=== PATIENT | female | born 2000 | race Caucasian/White ===

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

== ENCOUNTER → 2020-04-02 | Outpatient (CLI) | payer OTHER ==
[~2020-04-02] MED LIST changes: +BACL10 PO; +DOCU LIQUI50 MG/5 ML PT; +JEVITY 1.2 CAL237 M1; +Keppra100 MG/1 M PT; +METO10 PT
== END | disposition home or self-care (01) ==
LOC: LAB SHORT 10:40 → LAB EV 10:40
DX: L02.91 Cutaneous abscess, unspecified (principal)
CPT/HCPCS: 87070; 87075; 87077; 87186; 87205

== ENCOUNTER → 2020-04-04 | Outpatient (CLI) | payer OTHER ==
[2020-04-04 10:09] LABS: Source, Urine Clean Catch
[2020-04-04 13:01] LABS: Appearance, Urine Hazy (Clear); Bilirubin, Urine Neg (Neg); Blood, Urine Neg (Neg); Color, Urine Yellow (P-Yellow); Glucose Qualitative, Urine Neg (Normal); Ketones, Urine 1+ (Neg); Leukocyte Esterase, Urine Trace (Neg); Nitrite, Urine Neg (Neg); Protein, Urine Neg (Neg); Specific Gravity, Urine 1.015 (1.003-1.022); Urobilinogen, Urine NORM (Normal)
[2020-04-04 13:02] LABS: Amorphous Mod (0-Heavy); Bacteria Not Seen /hpf; Red Blood Cells, Urine Not Seen /hpf (0-2); Squamous Epithelial Cells Rare /hpf (Few)
== END | disposition home or self-care (01) ==
LOC: LAB EV 08:45 → LAB SHORT 08:45
PROVIDERS: Family Medicine
DX: R11.10 Vomiting, unspecified (principal)
CPT/HCPCS: 81001; 87086

== ENCOUNTER → 2020-06-25 | Outpatient (CLI) | payer OTHER ==
[~2020-06-25] MED LIST changes: +Fleet Enema132 ML PR; +HYDCOR10 PO; +LACO50TA2; +ONDA4 PO; +THERA-D2000 UNIT PO
[2020-06-25 08:56] LABS: Source, Urine Clean Catch
[2020-06-25 09:39] LABS: Appearance, Urine Clear (Clear); Bilirubin, Urine Neg (Neg); Blood, Urine Neg (Neg); Color, Urine Yellow (P-Yellow); Glucose Qualitative, Urine Neg (Normal); Ketones, Urine Neg (Neg); Leukocyte Esterase, Urine Neg (Neg); Nitrite, Urine Neg (Neg); Protein, Urine Neg (Neg); Urobilinogen, Urine NORM (Normal)
== END | disposition home or self-care (01) ==
LOC: LAB EV 08:53 → LAB SHORT 08:53 → PLD 08:53
PROVIDERS: Student in an Organized Health Care Education/Training Program
DX: G40.909 Epilepsy, unspecified, not intractable, without status epilepticus (principal)
CPT/HCPCS: 81003

== ENCOUNTER 2020-07-22 12:10 | Day surgery (SDC) | payer OTHER ==
[~2020-07-22 12:10] MED LIST changes: -Fleet Enema132 ML PR; -HYDCOR10 PO; -LACO50TA2; -ONDA4 PO; -THERA-D2000 UNIT PO
[2020-07-22] MEDS ORDERED: Fleet Enema132 ML PR (12:19)
[2020-07-22] MEDS ORDERED: HYDCOR10 PO (12:19)
[2020-07-22] MEDS ORDERED: ONDA4 PO (12:24)
[2020-07-22] MEDS ORDERED: LACO50TA2 (12:26)
[2020-07-22] MEDS ORDERED: THERA-D2000 UNIT PO (12:26)
--- NOTE | 2020-07-22 14:10 | NUR ---
07/22/20 1410 Juvencio Quiroz LATE ENTRY: PRE-OP, RN ASKED BOTH DR. ROSARIO AND DR. MORRIS IF BLOOD DRAWN FOR CHECK IS NEEDED. BOTH DOCTORS STATED "NO". PT UNABLE TO GIVE URINE FOR TEST. PT NON-VERBAL.
== END 2020-07-22 13:45 | disposition home or self-care (01) ==
LOC: ORSCSDS 12:10
PROVIDERS: Student in an Organized Health Care Education/Training Program
PROC: 0DB68ZX Excision of Stomach, Via Natural or Artificial Opening Endoscopic, Diagnostic (ICD-10-PCS; principal; 2020-07-22 13:15)
DX: R11.2 Nausea with vomiting, unspecified (principal); K21.9 Gastro-esophageal reflux disease without esophagitis; R56.9 Unspecified convulsions; K29.70 Gastritis, unspecified, without bleeding; Z79.899 Other long term (current) drug therapy
CPT/HCPCS: 88305; 88342; J2250; J2704; J7120

== ENCOUNTER → 2021-06-22 | Outpatient (CLI) | payer OTHER ==
[~2021-06-22] MED LIST changes: +Fleet Enema132 ML PR; +HYDCOR10 PO; +LACO50TA2; +ONDA4 PO; +THERA-D2000 UNIT PO
[2021-06-22 11:31] LABS: Source, Urine Clean Catch
[2021-06-22 12:16] LABS: Bilirubin, Urine Neg (Neg); Blood, Urine Neg (Neg); Glucose Qualitative, Urine Neg (Neg); Ketones, Urine Neg (Neg); Leukocyte Esterase, Urine Neg (Neg); Nitrite, Urine Pos (Neg); Protein, Urine Neg (Neg); Specific Gravity, Urine 1.015 (1.003-1.022); Urobilinogen, Urine NORM (Normal); pH, Urine 6.5 (5.0-8.0)
[2021-06-22 12:23] LABS: Appearance, Urine Clear (Clear); Color, Urine Pale Yellow (P-Yellow)
[2021-06-22 12:24] LABS: Bacteria Many /hpf; Red Blood Cells, Urine 0-2 /hpf (0-2); Squamous Epithelial Cells Few /hpf (Few); White Blood Cells, Urine 0-2 /hpf (0-5)
== END | disposition home or self-care (01) ==
LOC: LAB SHORT 11:00
PROVIDERS: Family Medicine
DX: N39.0 Urinary tract infection, site not specified (principal)
CPT/HCPCS: 81001

== ENCOUNTER → 2022-05-12 | Outpatient (CLI) | payer OTHER ==
[2022-05-12 10:48] LABS: Source, Urine Voided
[2022-05-12 11:55] LABS: Appearance, Urine Cloudy (Clear); Bilirubin, Urine Neg (Neg); Blood, Urine Neg (Neg); Color, Urine Yellow (P-Yellow); Glucose Qualitative, Urine Neg (Neg); Ketones, Urine Neg (Neg); Leukocyte Esterase, Urine Neg (Neg); Nitrite, Urine Pos (Neg); Protein, Urine 1+ (Neg); Specific Gravity, Urine 1.015 (1.003-1.022); Urobilinogen, Urine NORM (Normal)
[2022-05-12 12:38] LABS: Red Blood Cells, Urine 0-2 /hpf (0-2)
[2022-05-12 12:39] LABS: Amorphous Heavy (0-Heavy); Bacteria Many /hpf; Squamous Epithelial Cells Not Seen /hpf (Few)
== END ==
LOC: LAB SHORT 09:20
PROVIDERS: Family Medicine
DX: N39.46 Mixed incontinence (principal)
CPT/HCPCS: 81001; 87077; 87086; 87186

== ENCOUNTER 2022-10-21 23:54 | Emergency (ER) | payer OTHER ==
[~2022-10-21] VITALS: Ht 137.2 cm; Wt 43.1 kg
[2022-10-22 00:48] VITALS: BP 117/92
== END 2022-10-22 00:49 | disposition home or self-care (01) ==
LOC: ER 23:54
DX: R03.0 Elevated blood-pressure reading, without diagnosis of hypertension (principal); G40.909 Epilepsy, unspecified, not intractable, without status epilepticus; G80.9 Cerebral palsy, unspecified; Z79.899 Other long term (current) drug therapy
CPT/HCPCS: 99281

== ENCOUNTER → 2022-10-21 | Outpatient (CLI) | payer OTHER ==
[~2022-10-21] MED LIST changes: +ACET500 PT; +BACITRACIN ZIN1 EAC1 TOP; +CEFDINIR125 MG/5 M PO; +DIAZ10 PO; +LACOSAMIDE10 MG/1 M3 PO; +Levetirace100 MG/1 M PT; -ONDA4 PO; +ONDA4 PT; +ONFI2.5 MG/1 M PT; -THERA-D2000 UNIT PO; +THERA-D2000 UNIT PT; +VIMPAT10 MG/110 PO; +ZYRTEC10 M2 PT
[2022-10-21 13:55] LABS: Source, Urine Straight Cath
[2022-10-21 14:13] LABS: Bacteria Not Seen /hpf; Red Blood Cells, Urine Not Seen /hpf (0-2); Squamous Epithelial Cells Rare /hpf (Few); White Blood Cells, Urine 0-2 /hpf (0-5)
== END | disposition home or self-care (01) ==
LOC: LAB SHORT 13:51 → LAB 13:51
PROVIDERS: Family Medicine
DX: N39.0 Urinary tract infection, site not specified (principal)
CPT/HCPCS: 81015; 87077; 87086; 87186

== ENCOUNTER → 2022-12-01 | Outpatient (CLI) | payer OTHER ==
[2022-12-01 15:31] LABS: Source, Urine Voided
[2022-12-01 19:44] LABS: Bacteria Many /hpf; Red Blood Cells, Urine 0-2 /hpf (0-2); Squamous Epithelial Cells Rare /hpf (Few)
== END | disposition home or self-care (01) ==
LOC: LAB SHORT 14:38 → LAB 14:38
PROVIDERS: Family Medicine
DX: N39.46 Mixed incontinence (principal)
CPT/HCPCS: 81015; 87077; 87086; 87186

== ENCOUNTER 2023-01-16 16:50 | Emergency (ER) | payer OTHER ==
[~2023-01-16] VITALS: Ht 152.4 cm; Wt 43.1 kg
[2023-01-16] MEDS ORDERED: Diastat2.5 MG PT (17:08)
[2023-01-16] MEDS ORDERED: LACO50TA2 PT (17:10)
[2023-01-16] MEDS ORDERED: PROBIOTIC1 EA14 PO (17:11)
[2023-01-16 17:32] LABS: Source, Urine Straight Cath
[2023-01-16 17:41] LABS: BASOPHILS ABSOLUTE AUTO 0.06 K/mm3 (0.00-0.23); BASOPHILS PERCENT AUTO 1 % (0-2); EOSINOPHILS ABSOLUTE AUTO 0.12 K/mm3 (0.00-0.68); EOSINOPHILS PERCENT AUTO 1 % (0-6); Hematocrit 45.8 % (33.0-51.0); Hemoglobin 15.4 g/dL (11.5-16.0); IMMATURE GRAN ABSOLUTE AUTO 0.03 K/mm3 (0.00-0.10); IMMATURE GRAN PERCENT AUTO 0 % (0-1); LYMPHOCYTES ABSOLUTE AUTO 4.85 K/mm3 (0.84-5.20); LYMPHOCYTES PERCENT AUTO 37 % (21-46); MONOCYTES ABSOLUTE AUTO 0.83 K/mm3 (0.16-1.47); MONOCYTES PERCENT AUTO 6 % (4-13); Mean Corpuscular HGB Conc 33.6 g/dL (31.5-36.5); Mean Corpuscular Volume 92 fL (80-100); NEUTROPHILS PERCENT AUTO 56 % (41-73); Platelet Count 327 K/mm3 (150-400); RDW Coefficient Variation 12.2 % (11.7-14.2); RDW Standard Deviation 41.2 fL (35.1-46.3); Red Blood Cell Count 4.97 M/mm3 (3.80-5.20); White Blood Cell Count 13.29 K/mm3 (4.00-11.30)
[2023-01-16 17:44] LABS: Mean Platelet Volume 13.6 fL (9.1-12.4)
[2023-01-16 17:51] LABS: Appearance, Urine Hazy (Clear); Bilirubin, Urine Neg (Neg); Blood, Urine 2+ (Neg); Color, Urine Yellow (P-Yellow); Glucose Qualitative, Urine Neg (Neg); Ketones, Urine Neg (Neg); Leukocyte Esterase, Urine Neg (Neg); Nitrite, Urine Neg (Neg); Protein, Urine Neg (Neg); Specific Gravity, Urine 1.015 (1.003-1.022); Urobilinogen, Urine NORM (Normal)
[2023-01-16 17:53] LABS: Bacteria Few /hpf; Red Blood Cells, Urine 0-2 /hpf (0-2); Squamous Epithelial Cells Mod /hpf (Few); White Blood Cells, Urine 0-2 /hpf (0-5)
[2023-01-16 17:57] LABS: Albumin, Blood 4.6 g/dL (3.4-5.0); Albumin/Globulin Ratio 1.2 (0.8-1.8); Bilirubin, Total 0.4 mg/dL (0.1-1.0); Bun/Creatinine Ratio 23.1 (12.0-20.0); Calcium, Blood 9.8 mg/dL (8.5-10.1); Creatinine, Blood 0.43 mg/dL (0.40-1.00); Globulin, Blood 3.8 g/dL (2.2-4.0); Magnesium, Blood 2.2 mg/dL (1.6-2.4); Potassium, Blood 3.7 mmol/L (3.5-5.5); Total Protein, Blood 8.4 g/dL (6.4-8.2)
[2023-01-16 20:04] LABS: Adenovirus Not Detected (NOT DETECT); Bordetella pertussis Not Detected (NOT DETECT); Chlamydophila pneumoniae Not Detected (NOT DETECT); Coronavirus 229E Not Detected (NOT DETECT); Coronavirus HKU1 Not Detected (NOT DETECT); Coronavirus NL63 Not Detected (NOT DETECT); Coronavirus OC43 Not Detected (NOT DETECT); Human Metapneumovirus Not Detected (NOT DETECT); Human Rhinovirus/Enterovirus Not Detected (NOT DETECT); Influenza A/2009-H1 Not Detected (NOT DETECT); Influenza A/H1 Not Detected (NOT DETECT); Influenza A/H3 Not Detected (NOT DETECT); Influenza B Not Detected (NOT DETECT); Mycoplasma pneumoniae Not Detected (NOT DETECT); Parainfluenza Virus 1 Not Detected (NOT DETECT); Parainfluenza Virus 2 Not Detected (NOT DETECT); Parainfluenza Virus 3 Not Detected (NOT DETECT); Parainfluenza Virus 4 Not Detected (NOT DETECT); Respiratory Syncytial Virus Not Detected (NOT DETECT); SARS-Cov-2 (COVID-19), BioFire Not Detected (NOT DETECT)
[2023-01-16] MEDS ORDERED: Diastat2.5 MG PR (20:55)
[2023-01-16 21:02] VITALS: BP 106/76
== END 2023-01-16 21:00 | disposition home or self-care (01) ==
LOC: ER 16:50
PROVIDERS: Student in an Organized Health Care Education/Training Program
DX: G40.909 Epilepsy, unspecified, not intractable, without status epilepticus (principal); Z20.822 Contact with and (suspected) exposure to COVID-19; Z79.899 Other long term (current) drug therapy
CPT/HCPCS: 0202U; 71045; 80053; 81001; 83735; 85025; 96365; 96366; 96375; 99284-25; J1953; J2060; J2250; J3360; J7030; P9612

== ENCOUNTER → 2023-01-18 | Outpatient (CLI) | payer OTHER ==
[~2023-01-18] MED LIST changes: +Diastat2.5 MG PR; +Diastat2.5 MG PT; +LACO50TA2 PT; +PROBIOTIC1 EA14 PO
[2023-01-18 15:55] LABS: Source, Urine Voided
[2023-01-18 16:58] LABS: Bacteria Many /hpf; Red Blood Cells, Urine Not Seen /hpf (0-2); Squamous Epithelial Cells Rare /hpf (Few); White Blood Cells, Urine 0-2 /hpf (0-5)
== END | disposition home or self-care (01) ==
LOC: LAB 15:53 → LAB SHORT 15:53
PROVIDERS: Family Medicine
DX: N39.0 Urinary tract infection, site not specified (principal)
CPT/HCPCS: 81015; 87077; 87086; 87186

== ENCOUNTER 2023-05-07 16:25 | Observation (INO) | payer OTHER ==
[~2023-05-07] VITALS: Ht 147.3 cm; Wt 45.5 kg
[2023-05-07 17:18] LABS: BASOPHILS ABSOLUTE AUTO 0.06 K/mm3 (0.00-0.23); BASOPHILS PERCENT AUTO 1 % (0-2); EOSINOPHILS ABSOLUTE AUTO 0.04 K/mm3 (0.00-0.68); EOSINOPHILS PERCENT AUTO 0 % (0-6); Hematocrit 40.8 % (33.0-51.0); Hemoglobin 13.8 g/dL (11.5-16.0); IMMATURE GRAN ABSOLUTE AUTO 0.02 K/mm3 (0.00-0.10); IMMATURE GRAN PERCENT AUTO 0 % (0-1); LYMPHOCYTES ABSOLUTE AUTO 4.97 K/mm3 (0.84-5.20); LYMPHOCYTES PERCENT AUTO 50 % (21-46); MONOCYTES ABSOLUTE AUTO 0.69 K/mm3 (0.16-1.47); MONOCYTES PERCENT AUTO 7 % (4-13); Mean Corpuscular HGB 30.7 pg (26.0-34.0); Mean Corpuscular HGB Conc 33.8 g/dL (31.5-36.5); Mean Corpuscular Volume 91 fL (80-100); NEUTROPHILS ABSOLUTE AUTO 4.22 K/mm3 (1.96-9.15); NEUTROPHILS PERCENT AUTO 42 % (41-73); Platelet Count 251 K/mm3 (150-400); RDW Coefficient Variation 12.5 % (11.7-14.2); Red Blood Cell Count 4.49 M/mm3 (3.80-5.20)
[2023-05-07 17:26] LABS: Mean Platelet Volume 13.8 fL (9.1-12.4)
[2023-05-07 17:30] LABS: Source, Urine Straight Cath
[2023-05-07 17:32] LABS: Bilirubin, Urine Neg (Neg); Blood, Urine Neg (Neg); Glucose Qualitative, Urine Neg (Neg); Ketones, Urine Neg (Neg); Leukocyte Esterase, Urine Neg (Neg); Nitrite, Urine Neg (Neg); Protein, Urine Neg (Neg); Urobilinogen, Urine NORM (Normal)
[2023-05-07 17:34] LABS: Appearance, Urine Clear (Clear); Color, Urine Yellow (P-Yellow)
[2023-05-07 17:35] LABS: Albumin, Blood 3.8 g/dL (3.4-5.0); Albumin/Globulin Ratio 1.1 (0.8-1.8); Bilirubin, Total 0.3 mg/dL (0.1-1.0); Bun/Creatinine Ratio 31.7 (12.0-20.0); Calcium, Blood 9.2 mg/dL (8.5-10.1); Creatinine, Blood 0.35 mg/dL (0.40-1.00); Globulin, Blood 3.5 g/dL (2.2-4.0); Potassium, Blood 4.1 mmol/L (3.5-5.5); Total Protein, Blood 7.3 g/dL (6.4-8.2)
[2023-05-07 17:51] LABS: U Amphetamine Screen Not Detected; U Barbituate Screen Not Detected; U Benzodiazapine Screen DETECTED; U Buprenorphine Screen Not Detected; U Cannabinoids Screen Not Detected; U Cocaine Screen Not Detected; U Methadone Screen Not Detected; U Methamphetamine Screen Not Detected; U Opiates Screen Not Detected; U Oxycodone Screen Not Detected; U Phencyclidine Screen Not Detected
[2023-05-07 19:09] LABS: Magnesium, Blood 2.1 mg/dL (1.6-2.4); Phosphorus, Blood 2.9 mg/dL (2.5-4.9)
[2023-05-07] MEDS ORDERED: CEPHALEXIN125 MG/5 M PT (19:13)
[2023-05-07] MEDS ORDERED: URITRAX47 GM PT (19:15)
[2023-05-07] MEDS ORDERED: METO5A PO (19:19)
[2023-05-07] MEDS ORDERED: LACO50TA2 PT ×2 (19:20→19:22)
[2023-05-07 20:43] LABS: Adenovirus Not Detected (NOT DETECT); Bordetella pertussis Not Detected (NOT DETECT); Chlamydophila pneumoniae Not Detected (NOT DETECT); Coronavirus 229E Not Detected (NOT DETECT); Coronavirus HKU1 Not Detected (NOT DETECT); Coronavirus NL63 Not Detected (NOT DETECT); Coronavirus OC43 Not Detected (NOT DETECT); Human Metapneumovirus Not Detected (NOT DETECT); Human Rhinovirus/Enterovirus Not Detected (NOT DETECT); Influenza A/2009-H1 Not Detected (NOT DETECT); Influenza A/H1 Not Detected (NOT DETECT); Influenza A/H3 Not Detected (NOT DETECT); Influenza B Not Detected (NOT DETECT); Mycoplasma pneumoniae Not Detected (NOT DETECT); Parainfluenza Virus 1 Not Detected (NOT DETECT); Parainfluenza Virus 2 Not Detected (NOT DETECT); Parainfluenza Virus 3 Not Detected (NOT DETECT); Parainfluenza Virus 4 Not Detected (NOT DETECT); Respiratory Syncytial Virus Not Detected (NOT DETECT); SARS-Cov-2 (COVID-19), BioFire Not Detected (NOT DETECT)
[2023-05-07 22:06] VITALS: BP 108/81
[2023-05-08 00:14] VITALS: BP 113/64
[2023-05-08] MEDS ORDERED: ASCO500 PT (03:21)
[2023-05-08 04:26] VITALS: BP 122/68
[2023-05-08 04:44] LABS: BASOPHILS ABSOLUTE AUTO 0.04 K/mm3 (0.00-0.23); BASOPHILS PERCENT AUTO 1 % (0-2); EOSINOPHILS ABSOLUTE AUTO 0.07 K/mm3 (0.00-0.68); EOSINOPHILS PERCENT AUTO 1 % (0-6); IMMATURE GRAN ABSOLUTE AUTO 0.01 K/mm3 (0.00-0.10); IMMATURE GRAN PERCENT AUTO 0 % (0-1); LYMPHOCYTES ABSOLUTE AUTO 3.45 K/mm3 (0.84-5.20); LYMPHOCYTES PERCENT AUTO 46 % (21-46); MONOCYTES PERCENT AUTO 8 % (4-13); Mean Corpuscular HGB 31.2 pg (26.0-34.0); Mean Corpuscular HGB Conc 34.2 g/dL (31.5-36.5); Mean Corpuscular Volume 91 fL (80-100); Mean Platelet Volume 13.8 fL (9.1-12.4); NEUTROPHILS ABSOLUTE AUTO 3.27 K/mm3 (1.96-9.15); NEUTROPHILS PERCENT AUTO 44 % (41-73); Platelet Count 239 K/mm3 (150-400); RDW Coefficient Variation 12.4 % (11.7-14.2); RDW Standard Deviation 40.8 fL (35.1-46.3); Red Blood Cell Count 4.17 M/mm3 (3.80-5.20); White Blood Cell Count 7.44 K/mm3 (4.00-11.30)
[2023-05-08 04:56] LABS: Albumin, Blood 3.4 g/dL (3.4-5.0); Bilirubin, Total 0.2 mg/dL (0.1-1.0); Bun/Creatinine Ratio 33.5 (12.0-20.0); Calcium, Blood 8.8 mg/dL (8.5-10.1); Creatinine, Blood 0.42 mg/dL (0.40-1.00); Globulin, Blood 3.3 g/dL (2.2-4.0); Total Protein, Blood 6.7 g/dL (6.4-8.2)
[2023-05-08 07:36] VITALS: BP 114/66
[2023-05-08 11:49] VITALS: BP 118/74
[2023-05-08] MEDS ORDERED: URITRAX47 GM PO (13:53)
[2023-05-12 07:13] LABS: KEPPRA (LEVETIRACETAM) 36 ug/mL (10-40)
== END 2023-05-08 14:52 | disposition home or self-care (01) ==
LOC: ER 16:25 → PCU 16:26
PROVIDERS: Emergency Medicine; Family Medicine; Student in an Organized Health Care Education/Training Program; ADMIT Student in an Organized Health Care Education/Training Program
DX: G40.911 Epilepsy, unspecified, intractable, with status epilepticus (principal); G80.9 Cerebral palsy, unspecified; R47.89 Other speech disturbances; F84.2 Rett's syndrome; K59.09 Other constipation; Z93.1 Gastrostomy status; Z74.01 Bed confinement status; Z99.3 Dependence on wheelchair; Z79.899 Other long term (current) drug therapy; Z20.822 Contact with and (suspected) exposure to COVID-19
CPT/HCPCS: 0202U; 36415; 51701; 70450; 80053; 80177; 81003; 81025; 82947; 83735; 84100; 85025; 93005; 93010; 94762; 96372; 96374; 99285-25; A9270; G0378; J1650; J2060

== ENCOUNTER 2023-06-07 09:49 | Emergency (ER) | payer OTHER ==
[~2023-06-07] VITALS: Ht 152.4 cm; Wt 44.9 kg
[~2023-06-07 09:49] MED LIST changes: +ASCO500 PT; +CEPHALEXIN125 MG/5 M PT; +METO5A PO; +URITRAX47 GM PO; +URITRAX47 GM PT
[2023-06-07 11:35] LABS: Source, Urine Straight Cath
[2023-06-07 11:39] LABS: Appearance, Urine Clear (Clear); Bilirubin, Urine Neg (Neg); Blood, Urine 1+ (Neg); Color, Urine Yellow (P-Yellow); Glucose Qualitative, Urine Neg (Neg); Ketones, Urine Neg (Neg); Leukocyte Esterase, Urine Neg (Neg); Nitrite, Urine Neg (Neg); Protein, Urine Neg (Neg); Urobilinogen, Urine NORM (Normal)
[2023-06-07 11:40] LABS: BASOPHILS ABSOLUTE AUTO 0.04 K/mm3 (0.00-0.23); BASOPHILS PERCENT AUTO 0 % (0-2); EOSINOPHILS ABSOLUTE AUTO 0.05 K/mm3 (0.00-0.68); EOSINOPHILS PERCENT AUTO 0 % (0-6); Hematocrit 43.3 % (33.0-51.0); Hemoglobin 14.9 g/dL (11.5-16.0); IMMATURE GRAN ABSOLUTE AUTO 0.04 K/mm3 (0.00-0.10); IMMATURE GRAN PERCENT AUTO 0 % (0-1); LYMPHOCYTES PERCENT AUTO 20 % (21-46); MONOCYTES ABSOLUTE AUTO 0.66 K/mm3 (0.16-1.47); MONOCYTES PERCENT AUTO 5 % (4-13); Mean Corpuscular HGB 31.1 pg (26.0-34.0); Mean Corpuscular HGB Conc 34.4 g/dL (31.5-36.5); Mean Corpuscular Volume 90 fL (80-100); NEUTROPHILS ABSOLUTE AUTO 10.26 K/mm3 (1.96-9.15); NEUTROPHILS PERCENT AUTO 75 % (41-73); Platelet Count 244 K/mm3 (150-400); RDW Coefficient Variation 12.3 % (11.7-14.2); RDW Standard Deviation 40.5 fL (35.1-46.3); Red Blood Cell Count 4.79 M/mm3 (3.80-5.20); White Blood Cell Count 13.75 K/mm3 (4.00-11.30)
[2023-06-07 11:46] LABS: White Blood Cells, Urine 0-2 /hpf (0-5)
[2023-06-07 11:47] LABS: Amorphous Mod (0-Heavy); Bacteria Rare /hpf; Squamous Epithelial Cells Few /hpf (Few)
[2023-06-07 11:58] LABS: Base Excess Venous 2.7 mmol/L; Bicarbonate Venous 25.6 mmol/L (24.0-30.0); PCO2 Venous 51.3 mmHg (38-42); pH Blood Venous 7.35 (7.34-7.37)
[2023-06-07 12:02] LABS: Albumin, Blood 3.8 g/dL (3.4-5.0); Bilirubin, Total 0.5 mg/dL (0.1-1.0); Bun/Creatinine Ratio 31.9 (12.0-20.0); Calcium, Blood 9.6 mg/dL (8.5-10.1); Creatinine, Blood 0.38 mg/dL (0.40-1.00); Globulin, Blood 3.8 g/dL (2.2-4.0); Magnesium, Blood 2.3 mg/dL (1.6-2.4); Potassium, Blood 4.1 mmol/L (3.5-5.5); Total Protein, Blood 7.6 g/dL (6.4-8.2)
[2023-06-07 13:50] LABS: Influenza A Negative (NEGATIVE); Influenza B Negative (NEGATIVE)
[2023-06-07 13:51] LABS: SARS-Cov-2 (COVID-19) PCR, MMC NEGATIVE (NEGATIVE)
[2023-06-07 15:15] VITALS: BP 111/78
[2023-06-07] MEDS ORDERED: LAMO25 PT (15:19)
[2023-06-09 20:53] LABS: KEPPRA (LEVETIRACETAM) 54 ug/mL (10-40)
== END 2023-06-07 15:32 | disposition home or self-care (01) ==
LOC: ER 09:49
PROVIDERS: Student in an Organized Health Care Education/Training Program
DX: G40.909 Epilepsy, unspecified, not intractable, without status epilepticus (principal); G80.9 Cerebral palsy, unspecified; F84.2 Rett's syndrome; F73 Profound intellectual disabilities; Z99.3 Dependence on wheelchair; Z93.1 Gastrostomy status; Z79.899 Other long term (current) drug therapy
CPT/HCPCS: 80053; 80177; 81001; 82803; 83735; 85025; 87804; 87807; 93005; 93010; 99285-25; A9270; P9612; U0002

== ENCOUNTER 2023-06-11 18:55 | Emergency (ER) | payer OTHER ==
[~2023-06-11] VITALS: Ht 147.3 cm; Wt 44.9 kg
[~2023-06-11 18:55] MED LIST changes: +LAMO25 PT
[2023-06-11 19:49] LABS: BASOPHILS ABSOLUTE AUTO 0.05 K/mm3 (0.00-0.23); BASOPHILS PERCENT AUTO 1 % (0-2); EOSINOPHILS ABSOLUTE AUTO 0.05 K/mm3 (0.00-0.68); EOSINOPHILS PERCENT AUTO 1 % (0-6); Hematocrit 41.3 % (33.0-51.0); Hemoglobin 14.2 g/dL (11.5-16.0); IMMATURE GRAN ABSOLUTE AUTO 0.03 K/mm3 (0.00-0.10); IMMATURE GRAN PERCENT AUTO 0 % (0-1); LYMPHOCYTES ABSOLUTE AUTO 3.03 K/mm3 (0.84-5.20); LYMPHOCYTES PERCENT AUTO 35 % (21-46); MONOCYTES ABSOLUTE AUTO 0.45 K/mm3 (0.16-1.47); MONOCYTES PERCENT AUTO 5 % (4-13); Mean Corpuscular HGB 30.3 pg (26.0-34.0); Mean Corpuscular HGB Conc 34.4 g/dL (31.5-36.5); Mean Corpuscular Volume 88 fL (80-100); NEUTROPHILS PERCENT AUTO 59 % (41-73); Platelet Count 240 K/mm3 (150-400); RDW Coefficient Variation 12.2 % (11.7-14.2); Red Blood Cell Count 4.68 M/mm3 (3.80-5.20); White Blood Cell Count 8.71 K/mm3 (4.00-11.30)
[2023-06-11 19:56] LABS: Albumin, Blood 3.8 g/dL (3.4-5.0); Albumin/Globulin Ratio 1.1 (0.8-1.8); Bilirubin, Total 0.4 mg/dL (0.1-1.0); Bun/Creatinine Ratio 23.3 (12.0-20.0); Calcium, Blood 9.6 mg/dL (8.5-10.1); Creatinine, Blood 0.34 mg/dL (0.40-1.00); Globulin, Blood 3.6 g/dL (2.2-4.0); Potassium, Blood 3.9 mmol/L (3.5-5.5); Total Protein, Blood 7.4 g/dL (6.4-8.2)
[2023-06-12] MEDS ORDERED: AMOX-CLAV200 MG/5 M PO (00:16)
[2023-06-12 00:45] VITALS: BP 114/71
== END 2023-06-12 00:50 | disposition home or self-care (01) ==
LOC: ER 18:55
PROVIDERS: Emergency Medicine
DX: G40.909 Epilepsy, unspecified, not intractable, without status epilepticus (principal); J18.9 Pneumonia, unspecified organism; Z79.899 Other long term (current) drug therapy
CPT/HCPCS: 71045; 80053; 82306; 85025; 96365; 99284-25; A9270; J3475; J7120

== ENCOUNTER → 2024-02-02 | Outpatient (CLI) | payer OTHER ==
[~2024-02-02] MED LIST changes: +AMOCLA875 PO; +AMOX-CLAV200 MG/5 M PO; -DOCU LIQUI50 MG/5 ML PT; +Docusate S50 MG/5 ML PT; +LACOSAMIDE200 MG PT; +LEVE500 PT; -PROBIOTIC1 EA14 PO; +PROBIOTIC1 EA14 PT; -URITRAX47 GM PO
== END ==
LOC: LAB 14:12 → LAB SHORT 14:12
DX: N30.20 Other chronic cystitis without hematuria (principal)
CPT/HCPCS: 87086

== ENCOUNTER 2024-02-29 17:35 | Inpatient (IN) | payer OTHER ==
[~2024-02-29] VITALS: Ht 149.9 cm; Wt 47.6 kg
[2024-02-29 18:28] LABS: BASOPHILS ABSOLUTE AUTO 0.04 K/mm3 (0.00-0.23); BASOPHILS PERCENT AUTO 0 % (0-2); EOSINOPHILS ABSOLUTE AUTO 0.08 K/mm3 (0.00-0.68); EOSINOPHILS PERCENT AUTO 1 % (0-6); Hematocrit 41.3 % (33.0-51.0); Hemoglobin 14.4 g/dL (11.5-16.0); IMMATURE GRAN ABSOLUTE AUTO 0.04 K/mm3 (0.00-0.10); IMMATURE GRAN PERCENT AUTO 0 % (0-1); LYMPHOCYTES ABSOLUTE AUTO 3.09 K/mm3 (0.84-5.20); LYMPHOCYTES PERCENT AUTO 30 % (21-46); MONOCYTES ABSOLUTE AUTO 0.71 K/mm3 (0.16-1.47); MONOCYTES PERCENT AUTO 7 % (4-13); Mean Corpuscular HGB 30.8 pg (26.0-34.0); Mean Corpuscular HGB Conc 34.9 g/dL (31.5-36.5); Mean Corpuscular Volume 88 fL (80-100); NEUTROPHILS ABSOLUTE AUTO 6.53 K/mm3 (1.96-9.15); NEUTROPHILS PERCENT AUTO 62 % (41-73); NRBC ABSOLUTE 0.04 K/mm3 (0.00-0.02); NRBC Auto 0.4 /100 WBC (0.0-0.2); Platelet Count 248 K/mm3 (150-400); RDW Coefficient Variation 12.3 % (11.7-14.2); RDW Standard Deviation 39.7 fL (35.1-46.3); Red Blood Cell Count 4.68 M/mm3 (3.80-5.20); White Blood Cell Count 10.49 K/mm3 (4.00-11.30)
[2024-02-29 18:39] LABS: Bun/Creatinine Ratio 19.3 (12.0-20.0); Calcium, Blood 8.8 mg/dL (8.5-10.1); Creatinine, Blood 0.47 mg/dL (0.40-1.00); Magnesium, Blood 1.9 mg/dL (1.6-2.4); Potassium, Blood 4.1 mmol/L (3.5-5.5); Prolactin 88.8 ng/mL
[2024-02-29] MEDS ORDERED: LORazepam 2 MG/ML 1ML Injection IV ONE (20:20)
[2024-02-29 20:35] LABS: Source, Urine Straight Cath
[2024-02-29] MEDS ORDERED: LamoTRIgine 25 MG Tab PO ONE (20:35)
[2024-02-29] MEDS ORDERED: LAMOTRIGINE25 M4 PT (20:39)
[2024-02-29 20:41] LABS: Appearance, Urine Clear (Clear); Bilirubin, Urine Neg (Neg); Blood, Urine Neg (Neg); Color, Urine Yellow (P-Yellow); Glucose Qualitative, Urine Neg (Neg); Ketones, Urine Neg (Neg); Leukocyte Esterase, Urine 3+ (Neg); Nitrite, Urine Neg (Neg); Protein, Urine 1+ (Neg); Urobilinogen, Urine NORM (Normal)
[2024-02-29 20:52] LABS: Bacteria Few /hpf; Red Blood Cells, Urine 0-2 /hpf (0-2); Squamous Epithelial Cells Few /hpf (Few)
[2024-02-29] MEDS ORDERED: FLU VACC TS2024-25(6MOS UP)/PF 45 MCG/0.5 ML SYRINGE IM ONE (20:55)
[2024-02-29] MEDS ORDERED: LORazepam 2 MG/ML 1ML Injection IV PRN (20:55)
[2024-02-29] MEDS ORDERED: Polyethylene Glycol 3350 17 gm PT PRN (20:55)
[2024-02-29] MEDS ORDERED: NS 500 ML IV ONE (21:00)
[2024-02-29] MEDS ORDERED: Docusate Sodium 100 MG UDC PT SCH (21:00)
[2024-02-29] MEDS ORDERED: Metoclopramide HCl 10 MG Tab PT SCH (21:00)
[2024-02-29] MEDS ORDERED: LamoTRIgine 100 MG Tab PT SCH (21:00)
[2024-02-29] MEDS ORDERED: Lacosamide 50 MG Tablet PT SCH (21:00)
[2024-02-29] MEDS ORDERED: Polyethylene Glycol 3350 17 gm PT SCH (21:00)
[2024-02-29] MEDS ORDERED: Bacitracin Zinc Oint 1GRAM UD Packet TOP SCH (21:00)
[2024-02-29] MEDS ORDERED: LevETIRAcetam 100 MG/ML 5ML ORAL SYR PT SCH (21:00)
[2024-02-29] MEDS ORDERED: Mag Sulfate 1 GM/D5% 100ML 100 ML IV STA (21:14)
[2024-02-29] MEDS ORDERED: levETIRAcetam 2,000 MG in NS 100 ML IV ONE (21:30)
[2024-02-29] MEDS ORDERED: NS 1,000 ML IV SCH (22:00)
[2024-02-29] MEDS ORDERED: Lacosamide 50 MG/5 ML Oral Solution 5ML PT SCH (22:00)
[2024-02-29 23:20] VITALS: BP 121/73
[2024-02-29] MEDS ORDERED: ACET500 PO (23:38)
[2024-02-29] MEDS ORDERED: CEPHALEXIN125 MG/5 M PT (23:41)
--- NOTE | 2024-03-01 | NUR ---
ASSUMPTION OF CARE PT BROUGHT TO PCU 9 AT APPROXIMATELY 2310. PT SLID TO HOSPITAL BED FROM ER GIFTY. SEIZURE PADS ON BED FOR SAFETY. MAGNESIUM GTT AND NS INFUSING. PW PLACED. ADMISSION HISTORY COMPLETED WITH CAREGIVER AT BEDSIDE. VSS, AFEBRILE, SPO2 >93% ON RA. PT WITH G TUBE, DRAIN SPONGES PLACED TO HELP WITH SKIN INTEGRITY. HOME TUBE FEED RUNNING AT 95ML/HR PER ORDERS, PENDING DIETARY CONSULT. PT IS RESTING IN BED, BREATHING IS EVEN AND UNLABORED, BED IN LOWEST POSITION, CALL LIGHT IN REACH.
[2024-03-01] MEDS ORDERED: ZYRTEC10 M2 PT (00:06)
[2024-03-01] MEDS ORDERED: Fleet Enema132 ML PR (00:12)
[2024-03-01] MEDS ORDERED: MAGCIT300 PT (00:16)
[2024-03-01] MEDS ORDERED: SIME80CH PT (00:18)
[2024-03-01] MEDS ORDERED: NYSTOP15 GM TOP (00:34)
[2024-03-01] MEDS ORDERED: ONDA4 PT (00:35)
[2024-03-01] MEDS ORDERED: ACIDOPHILUS1 EAC3 PT (00:37)
[2024-03-01] MEDS ORDERED: VIMPAT10 MG/110 PT (00:39)
[2024-03-01 03:05] VITALS: BP 111/77
[2024-03-01 04:38] LABS: Albumin, Blood 3.6 g/dL (3.4-5.0); Albumin/Globulin Ratio 1.1 (0.8-1.8); Bilirubin, Total 0.5 mg/dL (0.1-1.0); Bun/Creatinine Ratio 29.5 (12.0-20.0); Calcium, Blood 8.7 mg/dL (8.5-10.1); Creatinine, Blood 0.34 mg/dL (0.40-1.00); Globulin, Blood 3.4 g/dL (2.2-4.0); Magnesium, Blood 2.3 mg/dL (1.6-2.4); Potassium, Blood 4.7 mmol/L (3.5-5.5)
--- NOTE | 2024-03-01 05:22 | NUR ---
SHIFT SUMMARY PT IS NOT ALERT OR ORIENTED, SHE DOES RESPOND TO MOVEMENT AND PAINFUL STIMULI, EYES OPEN SPONTANEOUSLY. PER CAREGIVER THIS IS COMMON FOR HER, ESPECIALLY AFTER MULTIPLE SEIZURES. PT HAD NO MORE SEIZURES THIS SHIFT, SEIZURE PADS IN PLACE ON BED FOR SAFETY. VSS, AFEBRILE, SPO2 >93% ON RA. G TUBE WITH HOME TUBE FEED RUNNING AT 95ML/HR, PT REMAINS NPO AT BASELINE. NS INFUSING PER EMAR. PW IN PLACE. SKIN INTACT. PT IS RESTING QUIETLY IN BED, BREATHING IS EVEN AND UNLABORED, CALL LIGHT IN REACH, BED IN LOWEST POSITION.
[2024-03-01 06:10] LABS: BASOPHILS ABSOLUTE AUTO 0.04 K/mm3 (0.00-0.23); BASOPHILS PERCENT AUTO 1 % (0-2); EOSINOPHILS ABSOLUTE AUTO 0.08 K/mm3 (0.00-0.68); EOSINOPHILS PERCENT AUTO 1 % (0-6); Hematocrit 40.9 % (33.0-51.0); Hemoglobin 13.9 g/dL (11.5-16.0); IMMATURE GRAN ABSOLUTE AUTO 0.02 K/mm3 (0.00-0.10); IMMATURE GRAN PERCENT AUTO 0 % (0-1); LYMPHOCYTES ABSOLUTE AUTO 3.29 K/mm3 (0.84-5.20); LYMPHOCYTES PERCENT AUTO 42 % (21-46); MONOCYTES ABSOLUTE AUTO 0.66 K/mm3 (0.16-1.47); MONOCYTES PERCENT AUTO 8 % (4-13); Mean Corpuscular HGB 31.5 pg (26.0-34.0); NEUTROPHILS ABSOLUTE AUTO 3.84 K/mm3 (1.96-9.15); NEUTROPHILS PERCENT AUTO 48 % (41-73); Platelet Count 238 K/mm3 (150-400); RDW Coefficient Variation 12.4 % (11.7-14.2); RDW Standard Deviation 42.3 fL (35.1-46.3); Red Blood Cell Count 4.41 M/mm3 (3.80-5.20); White Blood Cell Count 7.93 K/mm3 (4.00-11.30)
[2024-03-01 06:19] LABS: Mean Corpuscular Volume 93 fL (80-100)
[2024-03-01 08:20] VITALS: BP 132/93
[2024-03-01] MEDS ORDERED: LamoTRIgine 25 MG Tab PT SCH (09:00)
[2024-03-01] MEDS ORDERED: CLOBAZAM 2.5 MG/ML PT SCH (09:00)
[2024-03-01] MEDS ORDERED: LevETIRAcetam 100 MG/ML 5ML ORAL SYR PT SCH (09:00)
[2024-03-01] MEDS ORDERED: Cholecalciferol 1000 Unit Tablet (=25MCG) PT SCH (09:00)
[2024-03-01] MEDS ORDERED: Enoxaparin 40 MG/0.4 ML SYR SC SCH (09:00)
[2024-03-01 12:07] VITALS: BP 116/77
[2024-03-01] MEDS ORDERED: CefTRIAXone Sodium 1,000 MG in NS 100 ML IV SCH (12:30)
[2024-03-01 17:01] VITALS: BP 123/71
--- NOTE | 2024-03-01 19:32 | NUR ---
END OF SHIFT PT INTERMITTNENTLY SLEEPING T/O SHIFT. PT SPONTANEOUSLY OPENS EYES. PT SMILING INTERMITTENTLY. PT NONVERBAL & UNABLE TO FOLLOW INSTRUCTIONS. PT MOVING SELF IN BED FREQUENTLY, BUT ALSO REQUIRING ASSISTANCE FOR MAJOR REPOSITIONING. PT VSS. SPO2 > 92% ON RA. MONITOR SHOWING SR-ST. PT W/ G TUBE. INSTRUCTION TO CONTINUE TF PER HOME REGIMEN. TF INFUSING @ 95 MLS/HR, CONFIRMED W/ PT CAREGIVERS TO BE PT HOME ORDER. PT CAREGIVERS AT BEDSIDE T/O SHIFT.
[2024-03-01 20:09] VITALS: BP 134/72
[2024-03-01 23:39] VITALS: BP 101/62
[2024-03-02 03:08] VITALS: BP 142/116
--- NOTE | 2024-03-02 05:13 | NUR ---
SHIFT SUMMARY PT IS NOT ALERT OR ORIENTED, SHE DOES RESPOND TO MOVEMENT AND PAINFUL STIMULI, EYES OPEN SPONTANEOUSLY. PT APPEARS TO BE MUCH MORE AWAKE AND VOCAL THIS SHIFT. Q 2 TURNS COMPLETED. PT HAD NO SEIZURES THIS SHIFT, SEIZURE PADS IN PLACE ON BED FOR SAFETY. VSS, AFEBRILE, SPO2 >93% ON RA. G TUBE WITH TUBE FEED RUNNING AT 95ML/HR PER ORDERS. NS INFUSING PER EMAR. PW IN PLACE. PT IS RESTING QUIETLY IN BED, BREATHING IS EVEN AND UNLABORED, CALL LIGHT IN REACH, BED IN LOWEST POSITION.
[2024-03-02 05:15] LABS: Bun/Creatinine Ratio 19.3 (12.0-20.0); Creatinine, Blood 0.42 mg/dL (0.40-1.00); Magnesium, Blood 1.8 mg/dL (1.6-2.4); Phosphorus, Blood 3.6 mg/dL (2.5-4.9); Potassium, Blood 4.3 mmol/L (3.5-5.5)
[2024-03-02 07:33] VITALS: BP 103/58
[2024-03-02 12:18] LABS: KEPPRA (LEVETIRACETAM) 40 ug/mL (10-40)
[2024-03-02 12:24] LABS: LAMOTRIGINE 1.8 ug/mL (3.0-15.0)
[2024-03-02 12:33] VITALS: BP 140/116
[2024-03-02 16:41] VITALS: BP 163/127
--- NOTE | 2024-03-02 17:32 | NUR ---
SHIFT SUMMARY: PT ALERT TO VERBAL STIMULI, NON VERBAL AT BASELINE. BP AND HR STABLE. AFEBRILE. SPO2 >95% ON ROOM AIR. RESPIRATIONS EVEN AND UNLABORED. ABD SOFT, NON TENDER, BOWEL SOUNDS +. PULSES STRONG AND EQUAL THROUGHOUT. PUREWICK IN PLACE, PT WITH ONE BM THIS SHIFT. PT WITH ONE SEIZURE THIS AM, NOTIFIED. NEUROLOGIST CONSULTED. NO NEW ORDERS RECIEVED, DIRECTIONS TO FOLLOW UP WITH OUTPATIENT NEUROLOGY. PT POSSIBLE D/C TOMORROW. CAREGIVERS HAVE REMAINED AT BEDSIDE THROUGHOUT THE DAY, UPDATED ON PT PLAN OF CARE. REPOS Q2 TO MAINTAIN SKIN INTEGRITY. BED IN LOW, CALL LIGHT IN REACH, WILL REPORT TO ONCOMING RN.
[2024-03-02 19:55] VITALS: BP 102/89
[2024-03-02 23:54] VITALS: BP 160/90
[2024-03-03 04:00] VITALS: BP 102/66
--- NOTE | 2024-03-03 04:41 | NUR ---
SHIFT SUMMARY PATIENT HAS ALERT TO VERBAL STIMULI. PATIENT HAS HAD NO ACUTE EVENTS THIS SHIFT. VITAL SIGNS REVIEWED. VITAL SIGNS REVIEWED. PATIENT HAS HAD NO SEIZURES THIS SHIFT. RESPIRATIONS EVEN AND UNLABORED. PATIENT HAS BEEN RESTING ON AND OFF. REPOSITIONED Q2. PATIENT HAS NOT BEEN MEDICATED FOR PAIN, NAUSEA, SOB OR VOMITTING THIS SHIFT. TUBE FEEDS HAVE BEEN MAINTAINED THIS SHIFT. BED IN LOCKED AND LOWEST POSITION. SEIZURE PADS IN PLACE. BED ALARM ON. WILL REPORT TO DAY RN.
[2024-03-03] MEDS ORDERED: LORazepam 2 MG/ML 1ML Injection ONE (07:33)
[2024-03-03 08:38] VITALS: BP 102/78
[2024-03-03 11:14] VITALS: BP 107/63
[2024-03-03] MEDS ORDERED: LAMO100 PT (14:29)
[2024-03-03] MEDS ORDERED: CEPH250A PT (14:31)
--- NOTE | 2024-03-03 15:42 | NUR ---
DISHCHARGE: PT D/C PCU 7 @0311 VIA WHEELCHAIR. DISCHARGE INSTRUCTIONS AND EDUCATION PROVIDED TO CAREGIVER. ALL BELONGINGS WITH PT.
== END 2024-03-03 15:45 | disposition home or self-care (01) | DRG 101 ==
LOC: ER 17:35 → PCU 17:36 → ERHOLD 17:36 → PCU 23:01
PROVIDERS: Emergency Medicine; Nurse Practitioner Acute Care; ADMIT Internal Medicine
DX: G40.919 Epilepsy, unspecified, intractable, without status epilepticus (principal); F84.2 Rett's syndrome; N39.0 Urinary tract infection, site not specified; Z16.19 Resistance to other specified beta lactam antibiotics; Z66 Do not resuscitate; G80.9 Cerebral palsy, unspecified; B96.4 Proteus (mirabilis) (morganii) as the cause of diseases classified elsewhere; Z93.1 Gastrostomy status; Z79.899 Other long term (current) drug therapy; R13.12 Dysphagia, oropharyngeal phase; Z74.01 Bed confinement status; Z99.3 Dependence on wheelchair
CPT/HCPCS: 36415; 80048; 80053; 80175; 80177; 81001; 83605; 83735; 84100; 84146; 85025; 87077; 87086; 87186; 94762; 96365; 96375; 99285-25; A9270; G0378; J0696; J1650; J1953; J2060; J3475; J7030; J7040

== ENCOUNTER → 2024-08-15 | Outpatient (CLI) | payer OTHER ==
[~2024-08-15] MED LIST changes: +ACET500 PO; +ACIDOPHILUS1 EAC3 PT; +CEPH250A PT; +LAMO100 PT; +LAMOTRIGINE25 M4 PT; +MAGCIT300 PT; +NYSTOP15 GM TOP; +SIME80CH PT; +VIMPAT10 MG/110 PT
[2024-08-16 10:54] LABS: Adenovirus F 40/41 Not Detected (NOT DETECT); Astrovirus Not Detected (NOT DETECT); Campylobacter Sp Not Detected (NOT DETECT); Cryptosporidium Not Detected (NOT DETECT); Cyclospora Cayetanensis Not Detected (NOT DETECT); E. Coli O157 Not Detected (NOT DETECT); Entamoeba Histolytica Not Detected (NOT DETECT); Enteroaggregative E. coli-EAEC Not Detected (NOT DETECT); Enteropathogenic E. coli-EPEC Not Detected (NOT DETECT); Enterotoxigenic E. coli-ETEC Not Detected (NOT DETECT); Giardia Lamblia Not Detected (NOT DETECT); Norovirus GI/GII Not Detected (NOT DETECT); Plesiomonas Shigelloides Not Detected (NOT DETECT); Rotavirus A Not Detected (NOT DETECT); Salmonella Sp Not Detected (NOT DETECT); Sapovirus Not Detected (NOT DETECT); Shiga Toxin-prod E. coli-STEC Not Detected (NOT DETECT); Shigella/Enteroin E. coli-EIEC Not Detected (NOT DETECT); Vibrio Cholerae Not Detected (NOT DETECT); Vibrio Sp Not Detected (NOT DETECT); Yersinia Enterocolitica Not Detected (NOT DETECT)
== END ==
LOC: LAB 15:10 → LAB SHORT 15:10
PROVIDERS: Family Medicine
DX: R19.7 Diarrhea, unspecified (principal)
CPT/HCPCS: 87507

== ENCOUNTER 2024-09-10 18:30 | Emergency (ER) | payer OTHER ==
[~2024-09-10] VITALS: Ht 147.3 cm; Wt 43.1 kg
[2024-09-10 19:02] VITALS: BP 108/72
[2024-09-10] MEDS ORDERED: LORazepam 2 MG/ML 1ML Injection IV ONE (19:20)
[2024-09-10 19:41] LABS: BASOPHILS ABSOLUTE AUTO 0.03 K/mm3 (0.00-0.23); BASOPHILS PERCENT AUTO 0 % (0-2); EOSINOPHILS ABSOLUTE AUTO 0.02 K/mm3 (0.00-0.68); EOSINOPHILS PERCENT AUTO 0 % (0-6); Hematocrit 43.5 % (33.0-51.0); Hemoglobin 14.7 g/dL (11.5-16.0); IMMATURE GRAN ABSOLUTE AUTO 0.03 K/mm3 (0.00-0.10); IMMATURE GRAN PERCENT AUTO 0 % (0-1); LYMPHOCYTES PERCENT AUTO 21 % (21-46); MONOCYTES ABSOLUTE AUTO 0.63 K/mm3 (0.16-1.47); MONOCYTES PERCENT AUTO 8 % (4-13); Mean Corpuscular HGB 30.4 pg (26.0-34.0); Mean Corpuscular HGB Conc 33.8 g/dL (31.5-36.5); Mean Corpuscular Volume 90 fL (80-100); NEUTROPHILS ABSOLUTE AUTO 5.89 K/mm3 (1.96-9.15); NEUTROPHILS PERCENT AUTO 70 % (41-73); Platelet Count 221 K/mm3 (150-400); RDW Coefficient Variation 12.2 % (11.7-14.2); Red Blood Cell Count 4.84 M/mm3 (3.80-5.20)
[2024-09-10 20:01] LABS: Albumin, Blood 4.1 g/dL (3.4-5.0); Albumin/Globulin Ratio 1.2 (0.8-1.8); Bilirubin, Total 0.4 mg/dL (0.1-1.0); Bun/Creatinine Ratio 20.1 (12.0-20.0); Calcium, Blood 9.5 mg/dL (8.5-10.1); Creatinine, Blood 0.45 mg/dL (0.40-1.00); Globulin, Blood 3.4 g/dL (2.2-4.0); Potassium, Blood 4.2 mmol/L (3.5-5.5); Total Protein, Blood 7.5 g/dL (6.4-8.2)
[2024-09-10 20:08] LABS: Mean Platelet Volume 13.9 fL (9.1-12.4)
== END 2024-09-10 20:40 | disposition home or self-care (01) ==
LOC: ER 18:30
PROVIDERS: Emergency Medicine
DX: R56.9 Unspecified convulsions (principal); Z79.899 Other long term (current) drug therapy
CPT/HCPCS: 80053; 85025; 96374; 99284-25; J2060

== ENCOUNTER → 2024-09-20 | Outpatient (CLI) | payer OTHER | LOC: LAB SHORT 18:26 → LAB 18:26 | DX: N39.0 Urinary tract infection, site not specified (principal) | CPT/HCPCS: 87086 ==

== ENCOUNTER 2025-01-08 14:23 | Emergency (ER) | payer OTHER ==
[~2025-01-08] VITALS: Ht 139.7 cm; Wt 45.8 kg
[~2025-01-08 14:23] MED LIST changes: -Depo-Prove150 MG/11 IM; -PHENERGAN25 MG PR; -PROM12.5S PR
[2025-01-08] MEDS ORDERED: CEPH250A PT (15:15)
[2025-01-08] MEDS ORDERED: Depo-Prove150 MG/11 IM (15:20)
[2025-01-08] MEDS ORDERED: PHENERGAN25 MG PR (15:21)
[2025-01-08 15:30] LABS: BASOPHILS ABSOLUTE AUTO 0.04 K/mm3 (0.00-0.23); BASOPHILS PERCENT AUTO 0 % (0-2); EOSINOPHILS ABSOLUTE AUTO 0.01 K/mm3 (0.00-0.68); EOSINOPHILS PERCENT AUTO 0 % (0-6); Hematocrit 38.9 % (33.0-51.0); Hemoglobin 13.4 g/dL (11.5-16.0); IMMATURE GRAN ABSOLUTE AUTO 0.06 K/mm3 (0.00-0.10); IMMATURE GRAN PERCENT AUTO 0 % (0-1); LYMPHOCYTES ABSOLUTE AUTO 1.16 K/mm3 (0.84-5.20); LYMPHOCYTES PERCENT AUTO 7 % (21-46); MONOCYTES ABSOLUTE AUTO 0.50 K/mm3 (0.16-1.47); MONOCYTES PERCENT AUTO 3 % (4-13); Mean Corpuscular HGB Conc 34.4 g/dL (31.5-36.5); Mean Corpuscular Volume 90 fL (80-100); NEUTROPHILS ABSOLUTE AUTO 14.34 K/mm3 (1.96-9.15); NEUTROPHILS PERCENT AUTO 89 % (41-73); NRBC ABSOLUTE 0.00 K/mm3 (0.00-0.02); NRBC Auto 0.0 /100 WBC (0.0-0.2); Platelet Count 236 K/mm3 (150-400); RDW Coefficient Variation 12.9 % (11.7-14.2); RDW Standard Deviation 42.2 fL (35.1-46.3)
[2025-01-08 15:59] LABS: Alanine Aminotransfer (ALT/SGP 27.0 U/L (12-78); Albumin, Blood 3.8 g/dL (3.4-5.0); Albumin/Globulin Ratio 1.2 (0.8-1.8); Anion Gap 9.0 mmol/L (3-11); Aspartate Aminotrans (AST/SGOT 15.0 U/L (12-37); Bilirubin, Total 0.3 mg/dL (0.1-1.0); Blood Urea Nitrogen 10.0 mg/dL (8-24); CO2, Blood 23.0 mmol/L (21-32); Calcium, Blood 9.2 mg/dL (8.5-10.1); Chloride, Blood 110.0 mmol/L (98-108); Creatinine, Blood 0.37 mg/dL (0.40-1.00); Globulin, Blood 3.2 g/dL (2.2-4.0); Glucose, Blood 108.0 mg/dL (70-99); Magnesium, Blood 2.1 mg/dL (1.6-2.4); Potassium, Blood 3.9 mmol/L (3.5-5.5); Sodium, Blood 138.0 mmol/L (136-145); Total Protein, Blood 7.0 g/dL (6.4-8.2)
[2025-01-08 16:01] LABS: Source, Urine Clean Catch
[2025-01-08 16:03] LABS: Bilirubin, Urine Neg (Neg); Color, Urine Yellow (P-Yellow); Glucose Qualitative, Urine Neg (Neg); Ketones, Urine Neg (Neg); Leukocyte Esterase, Urine Neg (Neg); Protein, Urine Neg (Neg); Specific Gravity, Urine 1.010 (1.003-1.022); Urobilinogen, Urine NORM (Normal)
[2025-01-08 16:19] VITALS: BP 120/96
[2025-01-08] MEDS ORDERED: PROM12.5S PR (16:58)
== END 2025-01-08 17:50 | disposition home or self-care (01) ==
LOC: ER 14:23
PROVIDERS: Student in an Organized Health Care Education/Training Program
DX: G40.909 Epilepsy, unspecified, not intractable, without status epilepticus (principal); R11.2 Nausea with vomiting, unspecified; G80.9 Cerebral palsy, unspecified; E86.0 Dehydration; Z79.899 Other long term (current) drug therapy; Z99.3 Dependence on wheelchair
CPT/HCPCS: 51701; 71045; 80053; 81003; 81025; 83735; 85025; 96360; 99284-25; J7120

== ENCOUNTER → 2025-01-08 | Outpatient (CLI) | payer OTHER ==
[~2025-01-08] MED LIST changes: +Depo-Prove150 MG/11 IM; +PHENERGAN25 MG PR; +PROM12.5S PR
[2025-01-08 13:20] LABS: BASOPHILS ABSOLUTE AUTO 0.08 K/mm3 (0.00-0.23); BASOPHILS PERCENT AUTO 0 % (0-2); EOSINOPHILS ABSOLUTE AUTO 0.01 K/mm3 (0.00-0.68); EOSINOPHILS PERCENT AUTO 0 % (0-6); Hematocrit 44.6 % (33.0-51.0); Hemoglobin 15.4 g/dL (11.5-16.0); IMMATURE GRAN ABSOLUTE AUTO 0.11 K/mm3 (0.00-0.10); IMMATURE GRAN PERCENT AUTO 1 % (0-1); LYMPHOCYTES ABSOLUTE AUTO 1.43 K/mm3 (0.84-5.20); LYMPHOCYTES PERCENT AUTO 7 % (21-46); MONOCYTES ABSOLUTE AUTO 0.71 K/mm3 (0.16-1.47); MONOCYTES PERCENT AUTO 4 % (4-13); Mean Corpuscular HGB Conc 34.5 g/dL (31.5-36.5); Mean Corpuscular Volume 90 fL (80-100); NEUTROPHILS ABSOLUTE AUTO 17.95 K/mm3 (1.96-9.15); NEUTROPHILS PERCENT AUTO 89 % (41-73); NRBC ABSOLUTE 0.00 K/mm3 (0.00-0.02); NRBC Auto 0.0 /100 WBC (0.0-0.2); Platelet Count 300 K/mm3 (150-400); RDW Coefficient Variation 13.2 % (11.7-14.2); RDW Standard Deviation 42.7 fL (35.1-46.3)
[2025-01-08 13:29] LABS: Alanine Aminotransfer (ALT/SGP 34.0 U/L (12-78); Albumin, Blood 4.5 g/dL (3.4-5.0); Albumin/Globulin Ratio 1.2 (0.8-1.8); Anion Gap 14.0 mmol/L (3-11); Aspartate Aminotrans (AST/SGOT 17.0 U/L (12-37); Bilirubin, Total 0.5 mg/dL (0.1-1.0); Blood Urea Nitrogen 11.0 mg/dL (8-24); CO2, Blood 28.0 mmol/L (21-32); Calcium, Blood 9.9 mg/dL (8.5-10.1); Chloride, Blood 102.0 mmol/L (98-108); Creatinine, Blood 0.46 mg/dL (0.40-1.00); Globulin, Blood 3.7 g/dL (2.2-4.0); Glucose, Blood 119.0 mg/dL (70-99); Magnesium, Blood 2.0 mg/dL (1.6-2.4); Potassium, Blood 4.3 mmol/L (3.5-5.5); Sodium, Blood 140.0 mmol/L (136-145); Total Protein, Blood 8.2 g/dL (6.4-8.2)
== END ==
LOC: LAB 13:09 → LAB SHORT 13:09
PROVIDERS: Chiropractor
DX: E86.0 Dehydration (principal)
CPT/HCPCS: 80053; 83735; 85025

== ENCOUNTER 2025-04-21 18:41 | Emergency (ER) | payer OTHER ==
[~2025-04-21] VITALS: Ht 139.7 cm; Wt 56.7 kg
[~2025-04-21 18:41] MED LIST changes: +Depo-Prove150 MG/11 IM; +PHENERGAN25 MG PR; +PROM12.5S PR
[2025-04-21] MEDS ORDERED: NS 1,000 ML IV SCH (19:50)
[2025-04-21 21:46] LABS: Bilirubin, Urine Neg (Neg); Color, Urine Yellow (P-Yellow); Glucose Qualitative, Urine Neg (Neg); Ketones, Urine Neg (Neg); Leukocyte Esterase, Urine Neg (Neg); Protein, Urine Neg (Neg); Specific Gravity, Urine 1.005 (1.003-1.022); Urobilinogen, Urine NORM (Normal)
[2025-04-21 21:51] LABS: Red Blood Cells, Urine 0-2 /hpf (0-2); White Blood Cells, Urine Not Seen /hpf (0-5)
[2025-04-21 22:14] LABS: Alanine Aminotransfer (ALT/SGP 29.0 U/L (12-78); Albumin, Blood 3.8 g/dL (3.4-5.0); Albumin/Globulin Ratio 1.4 (0.8-1.8); Anion Gap 10.0 mmol/L (3-11); Aspartate Aminotrans (AST/SGOT 21.0 U/L (12-37); Bilirubin, Total 0.5 mg/dL (0.1-1.0); Blood Urea Nitrogen 8.0 mg/dL (8-24); CO2, Blood 23.0 mmol/L (21-32); Calcium, Blood 8.7 mg/dL (8.5-10.1); Chloride, Blood 110.0 mmol/L (98-108); Creatinine, Blood 0.44 mg/dL (0.40-1.00); Globulin, Blood 2.8 g/dL (2.2-4.0); Glucose, Blood 104.0 mg/dL (70-99); Potassium, Blood 4.0 mmol/L (3.5-5.5); Sodium, Blood 139.0 mmol/L (136-145); Total Protein, Blood 6.6 g/dL (6.4-8.2)
[2025-04-21 23:30] VITALS: BP 98/68
== END 2025-04-22 00:01 | disposition home or self-care (01) ==
LOC: ER 18:41
PROVIDERS: Emergency Medicine
DX: R56.9 Unspecified convulsions (principal); Z79.899 Other long term (current) drug therapy
CPT/HCPCS: 36415; 80053; 81001; 82947; 93005; 93010; 99284-25; J7030